=== PATIENT | male | born 1955 | race Caucasian/White ===

== ENCOUNTER 2020-11-07 14:14 | Emergency (ER) | payer MEDICARE ==
[~2020-11-07] VITALS: Ht 175.3 cm; Wt 78.0 kg
[~2020-11-07 14:14] MED LIST: NAPROSYN375 MG PO
[2020-11-07] MEDS ORDERED: METFORMIN500 M2 PO (14:37)
[2020-11-07 15:00] LABS: HEMATOCRIT 45.4 % (39.0-50.0); HEMOGLOBIN 14.7 g/dl (14.0-18.0); MEAN CELL VOLUME 94.6 fL CALC (80.0-100.0); MEAN CORPUSCULAR HGB 30.6 pG CALC (26.0-32.0); MEAN CORPUSCULAR HGB CONC 32.4 g/dL CAL (32.0-36.0); NEUT# 8.48 thou/uL (1.82-7.42); RED BLOOD COUNT 4.8 mill/uL (4.70-6.10); RED CELL DISTRI WIDTH 12.7 % (11.5-15.5)
[2020-11-07 15:12] LABS: ALBUMIN 4.8 g/dL (3.2-5.0); ALKALINE PHOSPHATASE 104 u/l (38-126); ANION GAP 18 (6-22 (CALC)); BILIRUBIN, TOTAL 0.8 mg/dL (0.0-1.4); BUN 27 mg/dL (8-23); BUN/CREATININE RATIO 14 (12-20 (CALC)); CARBON DIOXIDE 21 mmol/l (22-30); CHLORIDE 102 mmol/l (95-108); CREATININE 1.9 mg/dL (0.7-1.3); GFR 36 ML/MIN (>=60 (CALC)); GFR FOR AFR.AMER. 44 ML/MIN (>=60 (CALC)); LIPASE 103 u/l (23-300); POTASSIUM 4.5 mmol/l (3.5-5.1); SGOT/AST 58 u/l (19-48); SODIUM 136 mmol/l (137-146); TOTAL PROTEIN 8.6 g/dL (6.3-8.2)
[2020-11-07 16:52] LABS: PROTHROMBIN TIME 10.8 SECONDS (9.0-12.5)
[2020-11-07 17:20] VITALS: BP 119/70
== END 2020-11-07 17:31 | disposition short-term general hospital (02) ==
LOC: ED 14:14
PROVIDERS: Family Medicine
DX: S32.029A Unspecified fracture of second lumbar vertebra, initial encounter for closed fracture (principal); S22.31XA Fracture of one rib, right side, initial encounter for closed fracture; I10 Essential (primary) hypertension; E11.9 Type 2 diabetes mellitus without complications; W11.XXXA Fall on and from ladder, initial encounter; Y93.H2 Activity, gardening and landscaping; Y92.007 Garden or yard of unspecified non-institutional (private) residence as the place of occurrence of the external cause; Z79.84 Long term (current) use of oral hypoglycemic drugs; Z20.822 Contact with and (suspected) exposure to COVID-19
CPT/HCPCS: Q9967

== ENCOUNTER 2021-05-17 17:34 | Emergency (ER) | payer MEDICARE ==
[~2021-05-17] VITALS: Ht 167.6 cm; Wt 80.0 kg
[~2021-05-17 17:34] MED LIST changes: +METFORMIN500 M2 PO
[2021-05-17 17:44] VITALS: BP 144/98
[2021-05-17 18:00] VITALS: BP 160/90
[2021-05-17 18:05] LABS: URINE BILIRUBIN - DIPSTICK NEGATIVE (NEGATIVE); URINE BLOOD DIPSTICK LARGE (NEGATIVE); URINE COLOR YELLOW; URINE GLUCOSE - DIPSTICK 500 mg/dL (NEGATIVE); URINE KETONE 15 mg/dL (NEGATIVE); URINE LEUK ESTERASE NEGATIVE (NEGATIVE); URINE PH 5.5 (4.5-8.0); URINE PROTEIN - DIPSTICK 30 mg/dL (NEG-TRACE); URINE SPECIFIC GRAVITY >=1.030; URINE UROBILINOGEN - DIPSTICK 0.2 E.U./dL (0.2)
[2021-05-17 18:05] LABS: HEMOGLOBIN 15.4 g/dl (14.0-18.0); IMMATURE GRANULOCYTES 0.1 % (0.0-5.0); MEAN CELL VOLUME 93.6 fL CALC (80.0-100.0); MEAN CORPUSCULAR HGB 30.7 pG CALC (26.0-32.0); MEAN CORPUSCULAR HGB CONC 32.8 g/dL CAL (32.0-36.0); NEUT# 10.53 thou/uL (1.82-7.42); RED BLOOD COUNT 5.02 mill/uL (4.70-6.10); RED CELL DISTRI WIDTH 12.9 % (11.5-15.5)
[2021-05-17 18:13] LABS: ALBUMIN 4.6 g/dL (3.2-5.0); ALKALINE PHOSPHATASE 116 u/l (38-126); BUN 15 mg/dL (8-23); BUN/CREATININE RATIO 10 (12-20 (CALC)); CHLORIDE 98 mmol/l (95-108); CREATININE 1.4 mg/dL (0.7-1.3); GFR 51 ML/MIN (>=60 (CALC)); GFR FOR AFR.AMER. > 60 ML/MIN (>=60 (CALC)); LIPASE 45 u/l (23-300); POTASSIUM 4.3 mmol/l (3.5-5.1); SGOT/AST 22 u/l (19-48); SODIUM 136 mmol/l (137-146); TOTAL PROTEIN 8.7 g/dL (6.3-8.2)
[2021-05-17 18:13] LABS: URINE NITRITE - DIPSTICK NEGATIVE (Negative)
[2021-05-17 18:17] LABS: ANION GAP 14 (6-22 (CALC)); BILIRUBIN, TOTAL 1.2 mg/dL (0.0-1.4); CARBON DIOXIDE 28 mmol/l (22-30)
[2021-05-17 18:19] LABS: URINE WBC 0-2 WBC/hpf (0-5)
[2021-05-17] MEDS ORDERED: TAMSULOSIN0.4 MG PO (18:54)
[2021-05-17] MEDS ORDERED: OMNICEF300 M1 PO (18:54)
[2021-05-17] MEDS ORDERED: TORADOL PO (18:54)
[2021-05-17] MEDS ORDERED: ZOFRAN4 MG/TAB PO (18:55)
[2021-05-17 19:00] VITALS: BP 142/75
== END 2021-05-17 19:15 | disposition home or self-care (01) ==
LOC: ED 17:34
PROVIDERS: Family Medicine
DX: N21.0 Calculus in bladder (principal); I12.9 Hypertensive chronic kidney disease with stage 1 through stage 4 chronic kidney disease, or unspecified chronic kidney disease; E11.22 Type 2 diabetes mellitus with diabetic chronic kidney disease; N18.9 Chronic kidney disease, unspecified; Z87.442 Personal history of urinary calculi

== ENCOUNTER 2022-08-03 11:39 | Emergency (ER) | payer MEDICARE ==
[2022-08-03] VITALS (14 sets, daily range): BP systolic 100–149; BP diastolic 57–84
[~2022-08-03] VITALS: Ht 167.6 cm; Wt 77.4 kg
[~2022-08-03 11:39] MED LIST changes: +OMNICEF300 M1 PO; +TAMSULOSIN0.4 MG PO; +TORADOL PO; +ZOFRAN4 MG/TAB PO
[2022-08-03 12:22] LABS: URINE BILIRUBIN - DIPSTICK NEGATIVE (NEGATIVE); URINE BLOOD DIPSTICK SMALL (NEGATIVE); URINE COLOR YELLOW; URINE GLUCOSE - DIPSTICK 250 mg/dL (NEGATIVE); URINE KETONE 15 mg/dL (NEGATIVE); URINE LEUK ESTERASE NEGATIVE (NEGATIVE); URINE PH 5.5 (4.5-8.0); URINE PROTEIN - DIPSTICK 30 mg/dL (NEG-TRACE); URINE SPECIFIC GRAVITY >=1.030; URINE UROBILINOGEN - DIPSTICK 0.2 E.U./dL (0.2)
[2022-08-03 12:23] LABS: BASO% 0.4 % (0-3); EOS% 1.5 % (0-8); HEMATOCRIT 42.5 % (39.0-50.0); IMMATURE GRANULOCYTES 0.1 % (0.0-5.0); LYMPH% 29.7 % (15-41); MEAN CELL VOLUME 92.4 fL CALC (80.0-100.0); MEAN CORPUSCULAR HGB 30.4 pG CALC (26.0-32.0); MEAN CORPUSCULAR HGB CONC 32.9 g/dL CAL (32.0-36.0); MONO% 9.1 % (2-13); NEUT# 8.09 thou/uL (1.82-7.42); NEUT% 59.2 % (42-76); RED BLOOD COUNT 4.6 mill/uL (4.70-6.10); RED CELL DISTRI WIDTH 12.7 % (11.5-15.5)
[2022-08-03 12:24] LABS: URINE NITRITE - DIPSTICK NEGATIVE (Negative)
[2022-08-03 12:25] LABS: URINE EPITHELIAL CELLS FEW EPI/hpf (0-FEW); URINE MUCUS FEW hpf (NONE-FEW); URINE RBC 0-2 RBC/hpf (0-5)
[2022-08-03 12:40] LABS: ALBUMIN 4.5 g/dL (3.2-5.0); BILIRUBIN, TOTAL 0.8 mg/dL (0.2-1.3); CREATININE 1.7 mg/dL (0.7-1.3); POTASSIUM 4.1 mmol/l (3.5-5.1); TOTAL PROTEIN 8.1 g/dL (6.3-8.2)
[2022-08-03] MEDS ORDERED: LORTAB 5/3255 MG PO (15:05)
[2022-08-03] MEDS ORDERED: ZOFRAN4 MG/TAB PO (15:08)
[2022-08-03] MEDS ORDERED: TORADOL PO (15:08)
[2022-08-03] MEDS ORDERED: TAMSULOSIN0.4 MG PO (15:09)
[2022-08-03] MEDS ORDERED: PROAIR HFA IN (15:10)
[2022-08-03] MEDS ORDERED: KEFLEX500 MG PO (15:10)
== END 2022-08-03 15:37 | disposition home or self-care (01) ==
LOC: ED 11:39
PROVIDERS: Nurse Practitioner
DX: N20.2 Calculus of kidney with calculus of ureter (principal); I10 Essential (primary) hypertension; E11.9 Type 2 diabetes mellitus without complications; Z87.442 Personal history of urinary calculi; Z79.84 Long term (current) use of oral hypoglycemic drugs